=== PATIENT | female | born 1980 | race Two or more races ===

== ENCOUNTER 2020-05-28 09:23 | Day surgery (SDC) | payer OTHER | END 2020-05-28 13:00 | disposition home or self-care (01) | LOC: AMB-ENDOS 09:23 | PROVIDERS: ATTEND Surgery | DX: K62.89 Other specified diseases of anus and rectum (principal); N81.6 Rectocele ==

== ENCOUNTER 2020-05-30 07:25 | Day surgery (SDC) | payer OTHER ==
[~2020-05-30] VITALS: Ht 149.9 cm; Wt 63.5 kg
[2020-05-30] MEDS ORDERED: GABAPENTIN100 MG PO (09:49)
[2020-05-30] MEDS ORDERED: CELEBREX200MG PO (09:50)
== END 2020-05-30 11:00 | disposition home or self-care (01) ==
LOC: CIR.AMB 07:25 → EDSTATUS 11:30 → SURH 11:30 → O/R 17:30
PROVIDERS: ATTEND Surgery
DX: N80.1 Endometriosis of ovary (principal); N83.11 Corpus luteum cyst of right ovary; K66.0 Peritoneal adhesions (postprocedural) (postinfection); Z20.822 Contact with and (suspected) exposure to COVID-19